=== PATIENT | male | born 1990 | race Caucasian/White ===

== ENCOUNTER 2020-10-14 17:38 | Outpatient (CLI) | payer OTHER, SELFPAY ==
--- NOTE | ~2020-10-14 | XR_ITS ---
XR chest 2V DATE: 10/14/2020 18:05 INDICATION: Nicotine dependence TECHNIQUE: PA and lateral views COMPARISON: 10/30/2017 two-view chest FINDINGS: Bilateral hyperinflation consistent with COPD. No hilar or mediastinal enlargement. No pulm onary infiltrate or consolidation, pleural effusion or pulmonary vascular congestion or pneumothorax. Normal heart size. IMPRESSION: COPD Reviewed, dictated and finalized at location A. IMPRESSION: COPD
[2020-10-14 18:04] LABS: Basophils Absolute Auto 0.1 K/mm3 (0.0-0.1); Basophils Percent Auto 0.5 % (0.2-1.2); Eosinophils Percent Auto 0.2 % (0-4.4); Hematocrit 43.8 % (42.0-52.0); Hemoglobin 14.8 g/dL (14.0-18.0); Immature Granulocyte Absolute 0.04 K/mm3 (0.00-0.031); Immature Granulocyte Percent A 0.3 % (0-0.5); Lymphocytes Absolute Auto 3.36 K/mm3 (0.9-3.2); Lymphocytes Percent Auto 26.1 % (18.3-44.2); Mean Corpuscular HGB Conc 33.8 g/dl (32-36); Mean Corpuscular Hemoglobin 32.2 pg (26-34); Mean Corpuscular Volume 95.2 fl (80-100); Mean Platelet Volume 9.3 fl (7.4-10.4); Monocytes Absolute Auto 0.9 K/mm3 (0.1-0.6); Monocytes Percent Auto 6.6 % (2.6-8.5); Neutrophils Absolute Auto 8.5 K/mm3 (1.3-6.7); Neutrophils Percent Auto 66.3 % (45.5-73.1); Platelet Count Result 314 k/mm3 (150-375); Red Cell Distribution Width 13.2 % (11.5-14.5); White Blood Count 12.9 K/mm3 (4.5-10.0)
[2020-10-14 18:19] LABS: Alanine Aminotransferase 31 U/L (4-50); Albumin Level 4.8 g/dL (3.5-5.1); Alkaline Phosphatase 49 U/L (38-126); Anion Gap 10 mmol/L (8-16); Aspartate Amino Transferase 38 U/L (17-59); Bilirubin,Total 0.4 mg/dL (0.2-1.3); Blood Urea Nitrogen 13 mg/dL (9-20); Calcium 9.5 mg/dL (8.4-10.2); Carbon Dioxide 28 mmol/L (22-30); Chloride 105 mmol/L (98-107); Estimated Glomerular Filt Rate > 60; Glucose 88 mg/dL (65-110); Potassium 3.9 mmol/L (3.4-5.0); Sodium 143 mmol/L (137-145)
== END 2020-10-14 17:39 | disposition home or self-care (01) ==
LOC: ANHIMG 17:41
PROVIDERS: PCP Internal Medicine; Visit Provider Nurse Practitioner
DX: R63.4 Abnormal weight loss (principal); F17.200 Nicotine dependence, unspecified, uncomplicated; J44.9 Chronic obstructive pulmonary disease, unspecified
CPT/HCPCS: 36415; 71046; 80053; 84443; 85025

== ENCOUNTER 2020-10-22 21:45 | Emergency (ER) | payer OTHER, SELFPAY ==
--- NOTE | ~2020-10-22 | XR_ITS ---
EXAMINATION: XR chest 2V DATE: 10/22/2020 22:15 INDICATION: Chest pain. TECHNIQUE: Frontal and lateral views of the chest were obtained. COMPARISON: Chest 2 views 10/14/2020 FINDINGS: The chest demonstrates clear lungs without pneumonia, pleural effusion, or pneumothorax. Th e heart size is normal. IMPRESSION: 1. No acute cardiopulmonary disease. Reviewed, dictated and finalized at location A.
--- NOTE | 2020-10-22 21:49 | ECG_ITS ---
Measurements Intervals [place] Rate: 89 P: 78 PA: 148 QRS: 81 QRSD: 98 T: 52 QT: 343 QTc: 419 Interpretive Statements SINUS RHYTHM WITH SINUS ARRHYTHMIA NORMAL ECG Electronically Signed On 10-23-2020 6:33:40 CDT by Kehinde Morales D.O.
[2020-10-22 21:50] VITALS: BP 140/79; PULSE 90; RESP 18; TEMP 36.9; O2SAT 100
[2020-10-22 22:24] LABS: Basophils Absolute Auto 0.1 K/mm3 (0.0-0.1); Basophils Percent Auto 0.5 % (0.2-1.2); Eosinophils Absolute Auto 0.2 K/mm3 (0-0.3); Eosinophils Percent Auto 1.4 % (0-4.4); Hematocrit 44.2 % (42.0-52.0); Hemoglobin 14.7 g/dL (14.0-18.0); Immature Granulocyte Absolute 0.03 K/mm3 (0.00-0.031); Immature Granulocyte Percent A 0.3 % (0-0.5); Lymphocytes Absolute Auto 5.29 K/mm3 (0.9-3.2); Lymphocytes Percent Auto 46.3 % (18.3-44.2); Mean Corpuscular HGB Conc 33.3 g/dl (32-36); Mean Corpuscular Hemoglobin 33.1 pg (26-34); Mean Corpuscular Volume 99.5 fl (80-100); Mean Platelet Volume 9.8 fl (7.4-10.4); Monocytes Absolute Auto 0.5 K/mm3 (0.1-0.6); Monocytes Percent Auto 3.9 % (2.6-8.5); Neutrophils Absolute Auto 5.4 K/mm3 (1.3-6.7); Neutrophils Percent Auto 47.6 % (45.5-73.1); Platelet Count Result 283 k/mm3 (150-375); Red Blood Count 4.44 M/mm3 (4.6-6.20); Red Cell Distribution Width 13.8 % (11.5-14.5); White Blood Count 11.4 K/mm3 (4.5-10.0)
--- NOTE | 2020-10-22 22:29 | PC.NURSE ---
Pt here for chest palpitations and fast heartbeat x weeks.
[2020-10-22 22:33] LABS: Anion Gap 10 mmol/L (8-16); Blood Urea Nitrogen 16 mg/dL (9-20); Calcium 8.8 mg/dL (8.4-10.2); Carbon Dioxide 25 mmol/L (22-30); Chloride 105 mmol/L (98-107); Estimated CRCL calculation 106 ml/min; Estimated Glomerular Filt Rate > 60; Glucose 97 mg/dL (65-110); Potassium 3.7 mmol/L (3.4-5.0); Sodium 140 mmol/L (137-145)
--- NOTE | 2020-10-22 22:35 | PC.NURSE ---
called lab @[id number] to add on Red5 - TSH reflex ; talked to Mary OWEN
[2020-10-22 22:41] LABS: INR 0.9; Prothrombin Time 11.9 Seconds (11.1-14.7)
[2020-10-22 22:42] LABS: Partial Thromboplastin Time 25.7 SECONDS (22.3-36.8)
[2020-10-22 22:45] LABS: Troponin I < 0.012 ng/mL (0.000-0.034)
[2020-10-22] MEDS: NICOTINE (*PBKC) 21 MG PATCH 1 PATCH (22:52)
--- NOTE | 2020-10-22 22:54 | PC.NURSE ---
pt appears irritable and on edge. denies SI/HI. Denies AH/VH. pt report multiple family problems. appears anxious, but cooperative and agreeable to nicotine patch placement.
--- NOTE | 2020-10-22 23:05 | ED.ANXIETY ---
HPI - Anxiety General Chief Complaint: Anxiety Stated Complaint: stress/anxiety/insomnia Time Seen by Provider: 10/22/20 22:13 History of Present Illness HPI narrative: Patient presents with palpitations. Reports he has intermittent palpitations for years since he was a child. Reports it tends to come on when he is feeling emotional . Reports that his family stresses him out and triggers his palpitations. Most recently has been occurring at night keeping him up so he wanted to come in and be evaluated. He denies any associated chest pain, lightheadedness, dizziness. Reports he is not having that sensation right now. Denies any auditory visual hallucination denies any active SI or HI denies any prior psychiatric hospitalizations Related Data Allergies Allergy/AdvReac Type Severity Reaction Status Date / Time droperidol Allergy Mild Unknown Verified 10/14/20 11:32 amoxicillin Allergy Unknown Hives Verified 10/14/20 11:32 POTASSIUM CLAVULANATE Allergy Mild Hives Uncoded 10/14/20 11:32 Review of Systems Review of Systems: CONSTITUTIONAL: Denies fever, chills, or sweats. EYES: Denies visual changes, redness, or discharge. ENT: Denies rhinorrhea, congestion, sore throat, or otalgia. CARDIOVASCULAR: Denies chest pain, palpitations, or edema. RESPIRATORY: Denies cough or dyspnea. GASTROINTESTINAL: Denies abdominal pain, nausea, vomiting, or diarrhea. GENITOURINARY: Denies dysuria or hematuria. SKIN: Denies rash or itching. MUSCULOSKELETAL: Denies back pain, joint pain, or myalgia. NEUROLOGIC: Denies headache, numbness, dizziness, or weakness. PSYCHIATRIC: Denies anxiety or depression. All systems reviewed & are unremarkable except as noted in HPI and below PMFSH Past Medical History Medical History Chronic headaches Leukocytosis Surgical History Surgical History H/O adenoidectomy (~1994) Family History Family History Father No problems noted. Father Hypertension Thyroid disorder Mother Headache Social History Social History Smoking status: Heavy tobacco smoker Tobacco type: cigarettes Alcohol intake: current Substance use type: does not use Exam Narrative: GENERAL: Well-appearing, well-nourished, and in no acute distress. HEAD: Normocephalic, atraumatic. EYES: PERRLA and EOMI. ENT: Nares clear, no rhinorrhea or epistaxis. Mucous membranes moist. NECK: Supple. No masses. No JVD CHEST: Clear to auscultation. No respiratory distress. No wheezes rales or rhonchi HEART: Regular rate and rhythm. No murmur heard. Normal peripheral pulses. ABDOMEN: Soft, nontender, nondistended, normal active bowel sounds. EXTREMITIES: Normal range of motion. No edema. SKIN: Warm, dry, no rash. NEURO: No focal deficits. Alert and oriented x3. PSYCH: Normal mood and affect. Course Vital Signs Vital signs: Vital Signs Temperature 36.9 C 10/22/20 21:50 Pulse Rate 90 10/22/20 21:50 Respiratory Rate 18 10/22/20 21:50 Blood Pressure 140/79 10/22/20 21:50 Pulse Oximetry 100 10/22/20 21:50 Temperature 36.9 C 10/22/20 21:50 Pulse Rate 90 10/22/20 21:50 Respiratory Rate 18 10/22/20 21:50 Blood Pressure 140/79 10/22/20 21:50 Pulse Oximetry 100 10/22/20 21:50 MDM - Anxiety MDM Narrative Medical decision making narrative: Patient presented with concerns for palpitation triggered by his emotions . Patient overall looks clinically well he denied any SI or HI on my evaluation when he was questioned multiple times. Primary concern was for anxiety. I recommended evaluation by our behavioral health team and likely continued outpatient management however patient adamantly refused evaluation by behavioral team. He reluctantly agreed to a medical screening evaluation. Carissa
--- NOTE | 2020-10-22 23:08 | PC.NURSE ---
Pt walked out said he was tired of waiting around.
== END 2020-10-22 23:12 | disposition left against medical advice (07) ==
PROVIDERS: Emergency Medicine; Emergency Provider Emergency Medicine; PCP Internal Medicine
DX: R00.2 Palpitations (principal); F17.210 Nicotine dependence, cigarettes, uncomplicated
CPT/HCPCS: 36415; 71046; 80048; 84443; 84484; 85025; 85610; 85730; 93005; 99284; A9270

== ENCOUNTER → 2020-10-30 02:52 | Outpatient (CLI) | payer OTHER, SELFPAY ==
[2020-10-30 19:28] LABS: SARS-CoV-2 RNA PCR Negative
== END ==
PROVIDERS: PCP Internal Medicine; Visit Provider Nurse Practitioner
DX: Z20.822 Contact with and (suspected) exposure to COVID-19 (principal); D72.829 Elevated white blood cell count, unspecified; R50.9 Fever, unspecified
CPT/HCPCS: C9803; U0003; U0005

== ENCOUNTER 2020-11-01 02:07 | Emergency (ER) | payer OTHER, SELFPAY ==
--- NOTE | ~2020-11-01 | XR_ITS ---
EXAMINATION: XR chest 2V DATE: 11/01/2020 02:51 INDICATION: Cough TECHNIQUE: PA and lateral views of the chest were obtained. COMPARISON: Chest radiograph dated 10/22/20 FINDINGS: The lungs remain clear with no focal airspace opacities, pulmonary edema, pleural effusion or pneumot horax. The cardiomediastinal silhouette is normal. Mild midthoracic spondylosis. IMPRESSION: 1. No acute cardiopulmonary disease. Reviewed, dictated and finalized at location A.
--- NOTE | 2020-11-01 02:09 | PC.NURSE ---
pt seen here last week for same and eloped after pacing throughout ED and becoming irate that he could not have a cigarette. Pt states he saw his pcp and had a covid test done, currently pending results. today he is in ed c/o cough, stating I don't think it's covid but I do think I have pneumonia. No distress. No shortness of breath. Speech clear. Asks Will I be out of here by 6 am b/c I have to go to work. Pt then said he was going to smoke and walked outside. Came back into ED wr and stated, You guys said you were busy but you're NOT busy. I can go finish this cigarette, right? as pt ambulated outside to ED parking lot again.
[2020-11-01 02:22] VITALS: BP 127/85; PULSE 117; RESP 18; TEMP 36.5; O2SAT 97
--- NOTE | 2020-11-01 02:45 | ED.GENADULT ---
HPI - General Adult General Chief complaint: Upper Respiratory Infection Stated complaint: coughing Time Seen by Provider: 11/01/20 02:27 History of Present Illness HPI narrative: Patient 30-year-old gentleman who presents the emergency department with chief complaint of cough. Patient states that for several days he has been having a cough the patient reports it feels like whenever he has had pneumonia before in the past patient reports symptoms or not improved by anything reports is worse in the morning and whenever he gets up. Patient reports he seen his primary care physician and was tested for COVID-19 and does not receive the results yet. Related Data Allergies Allergy/AdvReac Type Severity Reaction Status Date / Time droperidol Allergy Mild Unknown Verified 11/01/20 02:53 amoxicillin Allergy Unknown Hives Verified 11/01/20 02:53 POTASSIUM CLAVULANATE Allergy Mild Hives Uncoded 11/01/20 02:53 Review of Systems Review of Systems: A 10 system review of systems was completed on the patient and is negative except for what is stated in the HPI. Nursing and ancillary documentation was reviewed. [facility] [place] Past Medical History Medical History Chronic headaches Leukocytosis Surgical History Surgical History H/O adenoidectomy (~1994) Family History Family History Father No problems noted. Father Hypertension Thyroid disorder Mother Headache Social History Social History Smoking status: Heavy tobacco smoker Tobacco type: cigarettes Alcohol intake: current Substance use type: does not use Exam Narrative: GENERAL: Well-appearing, well-nourished, and in no acute distress. HEAD: Normocephalic, atraumatic. EYES: PERRLA and EOMI. ENT: Nares clear, no rhinorrhea or epistaxis. Mucous membranes moist. NECK: Supple. CHEST: Clear to auscultation. No respiratory distress. HEART: Regular rate and rhythm. No murmur heard. Normal peripheral pulses. ABDOMEN: Soft, nontender, nondistended, normal active bowel sounds. EXTREMITIES: Normal range of motion. No edema. SKIN: Warm, dry, no rash. NEURO: No focal deficits. Alert and oriented x3. PSYCH: Normal mood and affect. Course Vital Signs Vital signs: Vital Signs Temperature 36.5 C 11/01/20 02:22 Pulse Rate 117 H 11/01/20 02:22 Respiratory Rate 18 11/01/20 02:22 Blood Pressure 127/85 11/01/20 02:22 Pulse Oximetry 97 11/01/20 02:22 Temperature 36.5 C 11/01/20 02:22 Pulse Rate 117 H 11/01/20 02:22 Respiratory Rate 18 11/01/20 02:22 Blood Pressure 127/85 11/01/20 02:22 Pulse Oximetry 97 11/01/20 02:22 Medical Decision Making Vital Signs Vital Signs: Vital Signs Temperature 36.5 C 11/01/20 02:22 Pulse Rate 117 H 11/01/20 02:22 Respiratory Rate 18 11/01/20 02:22 Blood Pressure 127/85 11/01/20 02:22 Pulse Oximetry 97 11/01/20 02:22 Temperature 36.5 C 11/01/20 02:22 Pulse Rate 117 H 11/01/20 02:22 Respiratory Rate 18 11/01/20 02:22 Blood Pressure 127/85 11/01/20 02:22 Pulse Oximetry 97 11/01/20 02:22 Discharge Plan Discharge Clinical Impression: Upper respiratory infection Patient Disposition: Home, Self-Care Condition: Stable Instructions: Antibiotic Form, Upper Respiratory Infection (ED) Prescriptions: New benzonatate 200 mg capsule 200 mg PO TID PRN (Reason: cough) Qty: 21 RF: 0 No Action nicotine (polacrilex) [Nicorette] 4 mg gum 4 mg buccal Q2H Qty: 110 RF: 0 Follow-up/Referrals: Ernesto Trujillo DO [Primary Care Provider] - Time of Disposition: 03:05
[2020-11-01 03:08] VITALS: O2SAT 100
== END 2020-11-01 03:26 | disposition home or self-care (01) ==
LOC: ANHED 02:59
PROVIDERS: Emergency Provider Emergency Medicine; PCP Internal Medicine
DX: J06.9 Acute upper respiratory infection, unspecified (principal); Z20.822 Contact with and (suspected) exposure to COVID-19; Z87.01 Personal history of pneumonia (recurrent); F17.210 Nicotine dependence, cigarettes, uncomplicated
CPT/HCPCS: 71046; 99283

== ENCOUNTER 2020-11-04 18:47 | Emergency (ER) | payer OTHER, SELFPAY ==
--- NOTE | ~2020-11-04 | XR_ITS ---
EXAMINATION: XR chest 1V portable EXAM DATE: 11/04/2020 19:27 INDICATION: Cough symptoms. TECHNIQUE: Portable AP frontal chest x-ray was obtained. Comparison is made to prior examination from 11/01/2020. FINDINGS: The lungs are clear. There are no pleural effusions. The cardiomediastinal silhouette is within normal limits. There is no pneumothorax suspected. The bones and soft tissues are unremarkab le. IMPRESSION: Normal chest x-ray exam. Reviewed, dictated and finalized at location G. IMPRESSION: Normal chest x-ray exam.
--- NOTE | 2020-11-04 18:49 | PC.NURSE ---
Immediately after being received pt states he is going outside to smoke one real fast . Pt advised to stay in building but he goes outside anyway.
--- NOTE | 2020-11-04 18:51 | PC.NURSE ---
Returned back to lobby for a brief moment and then steps back outside to smoke.
[2020-11-04 19:09] VITALS: BP 143/80; PULSE 83; RESP 20; TEMP 36.9; O2SAT 98
--- NOTE | 2020-11-04 20:26 | ED.GENADULT ---
HPI - General Adult General Chief complaint: Upper Respiratory Infection Stated complaint: low 02, face numb Time Seen by Provider: 11/04/20 19:21 Source: patient Mode of arrival: ambulatory Limitations: no limitations History of Present Illness HPI narrative: Patient presents warning reevaluation after being diagnosed with a viral illness. Patient states he was working and holding his breath thing he feels that his oxygen levels dropped and he began breathing quickly and his fingertips and face began to tingle. Patient states that his Covid test by his primary care came back negative. He states he has been a multiple year smoker. He has been trying to quit but has not. Patient states that he also drinks alcohol daily. He denies that his uneasiness this morning may be due to being hung over. Patient states that he is no longer feeling the symptoms at this time. Patient reports he was diagnosed with COPD. Patient denies any fever, chills, present shortness of breath, chest pain, vomiting or any other emergent symptoms. Related Data Allergies Allergy/AdvReac Type Severity Reaction Status Date / Time droperidol Allergy Mild Unknown Verified 11/04/20 19:15 amoxicillin Allergy Unknown Hives Verified 11/04/20 19:15 POTASSIUM CLAVULANATE Allergy Mild Hives Uncoded 11/04/20 19:15 Review of Systems Review of Systems: CONSTITUTIONAL: Denies fever, chills, or sweats. EYES: Denies visual changes, redness, or discharge. ENT: Denies rhinorrhea, congestion, sore throat, or otalgia. CARDIOVASCULAR: Denies chest pain, palpitations, or edema. RESPIRATORY: Reports occasional denies wheezes or rhonchi or dyspnea. GASTROINTESTINAL: Denies abdominal pain, nausea, vomiting, or diarrhea. GENITOURINARY: Denies dysuria or hematuria. SKIN: Denies rash or itching. MUSCULOSKELETAL: Denies back pain, joint pain, or myalgia. NEUROLOGIC: Denies headache, numbness, dizziness, or weakness. PSYCHIATRIC: Denies anxiety or depression. [facility] Past Medical History Medical History Chronic headaches Leukocytosis Surgical History Surgical History H/O adenoidectomy (~1994) Family History Family History Father No problems noted. Father Hypertension Thyroid disorder Mother Headache Social History Social History Smoking status: Heavy tobacco smoker Tobacco type: cigarettes Alcohol intake: current Substance use type: does not use Exam Narrative: GENERAL: Well-appearing, well-nourished, and in no acute distress. HEAD: Normocephalic, atraumatic. EYES: PERRLA and EOMI. NECK: Supple. No adenopathy or masses. CHEST: Clear to auscultation. No respiratory distress. No wheezes rales or rhonchi. Patient able to speak in clear appropriate senses. Patient is satting 98% on room air. HEART: Regular rate and rhythm. No murmur heard. Normal peripheral pulses. EXTREMITIES: Normal range of motion. No edema. SKIN: Warm, dry, no rash. NEURO: No focal deficits. Alert and oriented x3. PSYCH: Normal mood and affect. Course Vital Signs Vital signs: Vital Signs Temperature 98.4 F 11/04/20 19:09 Pulse Rate 83 11/04/20 19:09 Respiratory Rate 20 11/04/20 19:09 Blood Pressure 143/80 H 11/04/20 19:09 Pulse Oximetry 98 11/04/20 19:09 Temperature 98.4 F 11/04/20 19:09 Pulse Rate 83 11/04/20 19:09 Respiratory Rate 20 11/04/20 19:09 Blood Pressure 143/80 H 11/04/20 19:09 Pulse Oximetry 98 11/04/20 19:09 Medical Decision Making [facility] Narrative Medical decision making narrative: Patient reports that he feels short of breath after holding his breath. Patient instructed to stop holding his breath as it will make him feel short of breath. Patient states he then breathes very fast
--- NOTE | 2020-11-04 20:30 | PC.NURSE ---
Pt refusing to answer RN's questions. Just wants to be discharged .
== END 2020-11-04 20:30 | disposition home or self-care (01) ==
PROVIDERS: Emergency Provider Emergency Medicine; PCP Internal Medicine
DX: Z04.89 Encounter for examination and observation for other specified reasons (principal); F17.210 Nicotine dependence, cigarettes, uncomplicated; J44.9 Chronic obstructive pulmonary disease, unspecified
CPT/HCPCS: 71045; 99283

== ENCOUNTER 2022-02-15 11:02 | Outpatient (RCR) | payer OTHER, SELFPAY ==
--- NOTE | 2021-09-20 16:02 | PCPTNOTE ---
Patient did not show up for scheduled initial evaluation this date.
== END 2022-02-15 11:02 | disposition home or self-care (01) ==
LOC: ANHPT 11:02
PROVIDERS: PCP Internal Medicine; Visit Provider Clinical Nurse Specialist
DX: M54.9 Dorsalgia, unspecified (principal)
CPT/HCPCS: 99199

== ENCOUNTER 2023-08-03 22:45 | Emergency (ER) | payer OTHER, SELFPAY ==
--- NOTE | ~2023-08-03 | CT_ITS ---
CT lumbar spine wo con Ordering provider: Nia Carpenter PA-C History: 33 years Male with . low back pain radiating into left leg . Comparison: None. Technique: CT lumbar spine without contrast. Radiation reduction technique utilized. DLP is 397.75 m Gy FINDINGS: VERTEBRAE: Normal height and alignment. No subluxation or visible acute fracture. DISC SPACES: Well maintained. Evaluation of the neural foramina and spinal canal are limited without intrathecal contrast. T12-L1: No stenosis. L1-L2: No stenosis. L2-L3: No stenosis. . L3-L4: No stenosis. . L4-L5: No stenosis. Mild diffuse disc bulge. L5-S1: No stenosis. Mild diffuse disc bulge. PARASPINOUS SOFT TISSUES: Normal.. IMPRESSION: Mild diffuse disc bulges at the level of L4-L5 and L5-S1. Otherwise unremarkable study. Reviewed, dictated and finalized at location A. IMPRESSION: Mild diffuse disc bulges at the level of L4-L5 and L5-S1. Otherwise unremarkabl e study.
[2023-08-03 22:47] VITALS: BP 130/85; PULSE 87; RESP 16; TEMP 36.6; O2SAT 97
[2023-08-04] MEDS: ACETAMINOPHEN 500 MG TABLET 1000 MG PO (00:45)
[2023-08-04] MEDS: KETOROLAC 30 MG/ML VIAL (*BKC) IM (00:45)
--- NOTE | 2023-08-04 01:19 | ED.FALL ---
HPI - Fall General Chief Complaint: Fall Stated Complaint: fall Time Seen by Provider: 08/03/23 23:29 Source: patient Mode of arrival: ambulatory Limitations: no limitations History of Present Illness HPI Narrative: this is a 33-year-old male that presents to the emergency department for low back pain. Reports this has been ongoing over the last several months. No recent injuries or trauma. The pain radiates into his left leg. He has also been experiencing some paresthesias in the left leg. Reports tonight he was walking his dogs and was pulled and accidentally did the splits. Reports he now has pain in his groin as well. Denies saddle anesthesia or bowel/bladder incontinence. Related Data Allergies Allergy/AdvReac Type Severity Reaction Status Date / Time droperidol Allergy Mild Unconscious Verified 11/04/21 07:38 amoxicillin Allergy Unknown Hives Verified 11/04/21 07:38 POTASSIUM CLAVULANATE Allergy Mild Hives Uncoded 11/04/21 07:38 Review of Systems Review of Systems: CONSTITUTIONAL: Denies fever SKIN: Denies rash MUSCULOSKELETAL: Reports back pain, joint pain, and myalgia. NEUROLOGIC: Denies numbness, or weakness. All systems reviewed & are unremarkable except as noted in HPI and below PMFSH Past Medical History Medical History Alcohol abuse Chronic headaches Leukocytosis Tachycardia Surgical History Surgical History H/O adenoidectomy (~1994) Family History Family History Father No problems noted. Father Hypertension Thyroid disorder Mother Headache Social History Social History Social History: Caffeine-3 cups Smoking packs per day: 3 Smoking cigarettes per day: 60.0 Years smoked: 18 Smoking pack-years: 54.00 Smoking status: Current every day smoker Tobacco type: cigarettes Alcohol intake: current Alcohol use details: 12+ a day Substance use type: does not use Exam Narrative: GENERAL: Well-appearing, well-nourished, and in no acute distress. HEAD: Normocephalic, atraumatic. EYES: EOMI. CHEST: Clear to auscultation. No respiratory distress. No wheezes rales or rhonchi HEART: Regular rate and rhythm. No murmur heard. Normal peripheral pulses. BACK: No midline spinal tenderness EXTREMITIES: Normal range of motion. No edema. Strength equal in bilateral lower extremities (5/5). Normal gait SKIN: Warm, dry, no rash. NEURO: No focal deficits. Alert and oriented x3. PSYCH: Normal mood and affect Course Course Emergency Course: patient updated on his workup and agrees with plan of care Vital Signs Vital signs: Vital Signs Temperature 97.8 F 08/03/23 22:47 Pulse Rate 87 08/03/23 22:47 Respiratory Rate 16 08/03/23 22:47 Blood Pressure 130/85 08/03/23 22:47 Pulse Oximetry 97 08/03/23 22:47 Oxygen Delivery Room Air 08/03/23 22:47 Temperature 97.8 F 08/03/23 22:47 Pulse Rate 87 08/03/23 22:47 Respiratory Rate 16 08/03/23 22:47 Blood Pressure 130/85 08/03/23 22:47 Pulse Oximetry 97 08/03/23 22:47 Oxygen Delivery Room Air 08/03/23 22:47 MDM - Fall MDM Narrative Medical decision making narrative: Patient presents to the emergency department for low back pain ongoing over the last several months. Reporting falling tonight with worsening pain. Reporting paresthesias in his left leg. Denies any saddle anesthesia or bowel / bladder incontinence. Normal strength in the lower extremities. CT lumbar spine is without acute fracture or subluxation. No hematoma. Patient and family updated on his workup and agree with plan of care. Will be given follow-up with Neurosurgery. He was given warnings to return to the ER Differential Diagnosis Differential diagnosis: Likely other ( lumbar radiculopathy
[2023-08-04 02:20] VITALS: BP 124/90; PULSE 67; RESP 18; O2SAT 99
== END 2023-08-04 02:21 | disposition home or self-care (01) ==
PROVIDERS: Emergency Provider Physician Assistant; PCP Internal Medicine
DX: M51.16 Intervertebral disc disorders with radiculopathy, lumbar region (principal); F17.210 Nicotine dependence, cigarettes, uncomplicated
CPT/HCPCS: 72131; 96372; 99284; A9270; J1885

== ENCOUNTER → 2024-12-15 17:37 | Outpatient (CLI) | payer OTHER, SELFPAY ==
--- NOTE | ~2024-12-15 | XR_ITS ---
EXAMINATION: XR chest 2V, 12/15/2024 17:40 CDT HISTORY: COUGH, POSSIBLE COPD, PT IS SMOKER COMPARISON: No comparisons available. Technique: 2 views obtained. Findings: The lungs are clear, no effusion. No pneumothorax. Heart is normal size. Mediastinal and hilar contours are within normal limits. Bony thorax no acute abnormality. Impression: No acute cardiopulmonary abnormality. Reviewed, dictated and finalized at location P. Impression: No acute cardiopulmonary abnormality.
== END ==
LOC: EXPCRAD 17:39
PROVIDERS: PCP Emergency Medicine; Visit Provider Emergency Medicine
DX: R05.9 Cough, unspecified (principal)
CPT/HCPCS: 71046